=== PATIENT | female | born 1950 | race Caucasian/White ===

== ENCOUNTER → 2017-11-11 07:24 | Outpatient (CLI) | payer MEDICARE, OTHER, SELFPAY ==
--- NOTE | 2017-11-11 | DI.MRI.S_ITS ---
PROCEDURE: MR KNEE LT WO CON INDICATIONS: INTERNAL DERANGEMENT OF LEFT KNEE TECHNIQUE: Noncontrast sagittal PD fast spin echo and T2 fast spin echo with fat saturation, sagittal 3-D FLASH with fat saturation; coronal T1 spin echo and PD fast spin echo with fat saturation, and axial PD fast spin echo with fat saturation through the knee. COMPARISON: [facility] [place], CR, XR KNEE ARTHRITIC SERIES LT, 11/03/2017, 13:46. FINDINGS: Image quality: Excellent. Menisci: Linear high signal intensity obliquely traverses the medial meniscal body and posterior horn, demonstrating inferior articular surface extension, indicating oblique tearing. Linear high signal intensity traverses the lateral meniscal body and inferior articular surface, demonstrating inferior articular surface extension, indicating horizontal tearing. Cruciate ligaments: The anterior and posterior cruciate ligaments appear intact. Medial structures: The medial collateral ligament appears intact. The posterior oblique ligament, semimembranosus tendon insertions, oblique popliteal ligament, and meniscocapsular junction appear intact. Visualized portions of the pes anserinus tendons appear normal. No abnormal bursal fluid. Lateral structures: The lateral collateral ligament, long and short heads of the biceps femoris tendon appear intact. The popliteus tendon appears normal; the popliteofibular ligament appears intact. The posterosuperior and anteroinferior popliteomeniscal fascicles appear intact. The arcuate and fabellofibular ligaments appear intact, on either side of the lateral inferior geniculate artery. Iliotibial band appears normal. Anterior structures: The quadriceps and patellar tendons appear intact. Patellar alignment is normal. No femoral trochlear dysplasia or ventral trochlear prominence. No edema in the infrapatellar fat pad. Bones and cartilage: Mild tricompartmental periarticular osteophyte formation. No bone marrow contusions or fractures. Irregular marked high grade articular cartilage loss overlies the lateral patellar apex. Moderate articular cartilage loss overlies the posterior weightbearing aspect of the lateral femoral condyle. Mild diffuse articular cartilage loss overlies the weightbearing aspects of the medial femoral condyle and medial tibial plateau. Joint space: There is physiologic knee joint fluid. Trace Muro's cyst. Normal appearing synovial plicae are incidentally noted. IMPRESSION: 1. Medial and lateral meniscal tearing. 2. Tricompartmental articular cartilage loss. 3. Trace Muro's cyst. Dictated by: Tushar Awad M.D. on 11/11/2017 at 11:11 Approved by: Tushar Awad M.D. on 11/11/2017 at 11:23
== END ==
PROVIDERS: Visit Provider Orthopaedic Surgery
DX: S83.242A Other tear of medial meniscus, current injury, left knee, initial encounter (principal); S83.282A Other tear of lateral meniscus, current injury, left knee, initial encounter; M71.22 Synovial cyst of popliteal space [Baker], left knee
CPT/HCPCS: 73721

== ENCOUNTER → 2022-01-10 15:58 | Outpatient (CLI) | payer MEDICARE, OTHER, SELFPAY ==
--- NOTE | 2022-01-10 | DI.MRI.S_ITS ---
PROCEDURE: MR SHOULDER RT WO CON INDICATIONS: Pain in right shoulder TECHNIQUE: Noncontrast oblique coronal T2 fast spin echo with fat saturation, oblique sagittal T1 spin echo and T2 fast spin echo with fat saturation, axial T1 spin echo and T2 fast spin echo with fat saturation through the shoulder. COMPARISON: [facility] [place], CR, XR SHOULDER 2+ VIEWS RIGHT, 12/12/2021, 15:57. FINDINGS: Image quality: There are motion artifacts. Rotator cuff: There is partial-thickness tear of the supraspinatus tendon along the bursal and articular surface, as well as the footprint. Partial thickness tear is also present in the infraspinatus and subscapularis tendons primarily involving the articular surface. There is moderate tendinosis of the supraspinatus, infraspinatus and subscapularis tendons. Sagittal images demonstrate no rotator cuff muscle atrophy. Bones and bursae: No bone marrow contusions or fractures. 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 The acromion demonstrates conventional anatomy, without an os acromiale. There is subcoracoid bursal fluid suggesting bursitis. Capsule and soft tissues: There is degenerative labral fraying in the superior, posterior and and inferior labrum. The long head of the biceps tendon demonstrates normal location and morphology. There is moderate tendinosis of the long head of the biceps tendon. The rotator interval appears normal, without fibrosis. The coracohumeral ligament is normal in thickness. IMPRESSION: 1. Partial-thickness tear of the supraspinatus, infraspinatus and subscapularis tendons with associated moderate tendinosis. 2. 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 3. Suspect subcoracoid bursitis. 4. Moderate tendinosis of the long head of the biceps tendon. 5. Degenerative labral fraying. Dictated by: Bhumi Rodriguez M.D. on 01/10/2022 at 17:13 Approved by: hBumi Rodriguez M.D. on 01/10/2022 at 18:57
== END ==
PROVIDERS: Referring Provider Orthopaedic Surgery; Visit Provider Orthopaedic Surgery
DX: M75.111 Incomplete rotator cuff tear or rupture of right shoulder, not specified as traumatic (principal); M19.011 Primary osteoarthritis, right shoulder; M25.511 Pain in right shoulder
CPT/HCPCS: 73221